=== PATIENT | female | born 1955 | race Caucasian/White ===

== ENCOUNTER 2021-11-21 22:28 | Emergency (ER) | payer MEDICARE, BC ==
[2021-11-21] MEDS ORDERED: Diphtheria,Pertussis(Acell),Tetanus Vaccine 0.5 ML Syringe IM ONE (23:03)
[2021-11-21] MEDS ORDERED: Lidocaine 1% 10 ML MDV INJECT ONE (23:05)
[2021-11-22] MEDS ORDERED: Cephalexin 500 MG Cap PO ONE (00:05)
== END 2021-11-22 00:22 | disposition home or self-care (01) ==
LOC: JD.ED 22:28
DX: S81.812A Laceration without foreign body, left lower leg, initial encounter (principal); Z23 Encounter for immunization; W26.8XXA Contact with other sharp object(s), not elsewhere classified, initial encounter
CPT/HCPCS: 12001; 90471; 90715; 99282; A9270; 99283